=== PATIENT | female | born 1995 | race Caucasian/White ===

== ENCOUNTER 2016-06-13 07:40 | Day surgery (SDC) | payer MEDICAID ==
[2016-06-08 15:34] VITALS: BMI 18.0
[~2016-06-13 07:40] MED LIST: LACTATED RINGERS 1,000 ML IV SCH
[2016-06-13 08:10] VITALS: RESP 16; TEMP 97.1
[2016-06-13] MEDS ORDERED: LIDOCAINE 1% 20 ML VIAL (10MG/ML) FOR IV START INTRADERMA ONE (08:10)
[2016-06-13] MEDS ORDERED: LIDOCAINE 1% INJ 10MG/ML (20 ML MDV) ONE (08:28)
[2016-06-13] MEDS ORDERED: PROPOFOL 10 MG/ML 20 ML VIAL IV ONE (08:28)
--- NOTE | 2016-06-13 08:37 | P.PCN ---
Date of Procedure: 06/13/16 Procedure(s) Performed: BRIEF HISTORY: Patient is a 20-year-old, pleasant, white female, scheduled for an upper endoscopy as a part of evaluation of persistent nausea for the last 1 year duration. She also has occasional abdominal pain but no emesis. She was recently started on Prilosec 20 mg daily but a month ago and feeling much better. She is scheduled for an upper endoscopy to rule out peptic ulcer disease. PROCEDURE PERFORMED: Esophagogastroduodenoscopy with biopsy. PREOPERATIVE DIAGNOSIS: Epigastric pain and persistent nausea 1 year duration. IV sedation per anesthesia. PROCEDURE: After informed consent was obtained, the patient was brought into the endoscopy unit. IV conscious sedation was administered by Anesthesia under continuous monitoring. Initially the Olympus GIF-140 video endoscope was inserted into the mouth. Esophagus intubated without any difficulty. It was gradually advanced into the stomach and duodenum and carefully examined. The bulb and the second part of the duodenum appeared normal. Biopsies were done from the duodenum to rule out celiac disease. The scope at this time was withdrawn to the stomach, adequately insufflated with air, and upon careful examination, mucosa of the antrum, had mild gastritis and biopsies were done from this area. The body, cardia and the fundus appeared normal. The scope was then withdrawn into the esophagus. The GE junction was located at 39 cm from the incisors. The esophagus appeared normal. Biopsies were done from the distal esophagus to rule out eosinophilic esophagitis. There was one superficial erosions but no ulcerations seen consistent with LA grade a reflux esophagitis and the patient tolerated the procedure well. IMPRESSION: 1. Mild antral gastritis. 2. LA grade A reflux esophagitis. RECOMMENDATIONS: The findings of this examination were discussed with the patient as well as a family. She was advised to follow with the biopsy results. she will continue with Prilosec 20 mg daily and follow antireflux measures. She'll be seen in the office in 2 months.
[2016-06-13 08:58] VITALS: BP 100/64; PULSE 72
== END 2016-06-13 09:36 | disposition home or self-care (01) ==
LOC: ORWHC2ENDO 07:40
PROVIDERS: ATTEND Internal Medicine Gastroenterology
DX: K21.0 Gastro-esophageal reflux disease with esophagitis (principal); K29.50 Unspecified chronic gastritis without bleeding; Z79.1 Long term (current) use of non-steroidal anti-inflammatories (NSAID); Z79.899 Other long term (current) drug therapy
CPT/HCPCS: 81025; 88305; 88342; 43239; J2001; J2704